=== PATIENT | male | born 1940 | race Caucasian/White ===

== ENCOUNTER 2019-03-28 11:35 | Emergency (ER) | payer OTHER ==
[~2019-03-28] VITALS: Ht 177.8 cm; Wt 111.1 kg
[2019-03-28] MEDS ORDERED: NORVASC5 MG (12:09)
[2019-03-28] MEDS ORDERED: LOSARTAN POTASS50 MG (12:09)
[2019-03-28] MEDS ORDERED: HYDRALAZINE HCL25 MG (12:10)
[2019-03-28] MEDS ORDERED: CHILDREN'S ASPI81 MG (12:10)
[2019-03-28] MEDS ORDERED: AMOX250 (12:11)
== END 2019-03-28 14:38 | disposition home or self-care (01) ==
LOC: ER 11:35
DX: R53.1 Weakness (principal); K29.70 Gastritis, unspecified, without bleeding